=== PATIENT | female | born 1960 | race Caucasian/White ===

== ENCOUNTER → 2016-05-16 | Outpatient (CLI) | payer OTHER ==
--- NOTE | 2016-05-16 14:39 | XR ---
EXAMINATION TYPE: XR chest 2V DATE OF EXAM: 05/16/2016 12:17 PM COMPARISON: Prior chest x-ray third of June 2012 HISTORY: Cough, R05 TECHNIQUE: Frontal and lateral views of the chest are obtained. FINDINGS: There is no focal air space opacity, pleural effusion, or pneumothorax seen. The cardiac silhouette size is within normal limits. Bronchial wall thickening is present. There is a mild spinal curvature. The osseous structures are intact. IMPRESSION: Correlate for reactive airways disease, bronchitis, follow-up as indicated
== END | disposition home or self-care (01) ==
LOC: RADXRMAIN 11:44
PROVIDERS: ATTEND Internal Medicine Sleep Medicine
DX: R91.8 Other nonspecific abnormal finding of lung field (principal)
CPT/HCPCS: 71020

== ENCOUNTER → 2016-08-08 | Outpatient (CLI) | payer OTHER ==
[2016-08-11 14:23] LABS: Alternaria alternata IgE <0.35 kU/L (<0.35); Asperg. fumagatus IgE <0.35 kU/L (<0.35); Asperg. fumagatus IgE Class CLASS 0; Cat Epith & Dander IgE <0.35 kU/L (<0.35); Cat Epith & Dander IgE Class CLASS 0; Clad herbarum IgE <0.35 kU/L (<0.35); Clad herbarum IgE Class CLASS 0; Com. Pigweed IgE <0.35 kU/L (<0.35); Com. Pigweed IgE Class CLASS 0; Common Ragweed IgE Class CLASS 0; Cow's Milk IgE Class CLASS 0; Dermato. farinae IgE <0.35 kU/L (<0.35); Dermato. farinae IgE Class CLASS 0; House Dust (Greer) IgE <0.35 kU/L (<0.35); House Dust (Greer) IgE Class CLASS 0; Maple (Box Elder) IgE <0.35 kU/L (<0.35); Maple (Box Elder) IgE Class CLASS 0; Penicillium notatum IgE Class CLASS 0; Timothy Grass IgE <0.35 kU/L (<0.35); Timothy Grass IgE Class CLASS 0
[2016-08-14 00:04] LABS: Alternaria tenius IgG 6.3 mcg/mL (< 13.6); Phoma ssp. IgG 7.1 mcg/mL (< 6.6); Saccaharomospora viridis Not detected (Not detected); Saccaharopoly. rectivirgula Not detected (Not detected)
== END | disposition home or self-care (01) ==
LOC: LABWHC1 11:58
PROVIDERS: ATTEND Internal Medicine Sleep Medicine
DX: B44.89 Other forms of aspergillosis (principal)
CPT/HCPCS: 36415; 82785; 86001; 86003; 86606; 86609

== ENCOUNTER → 2016-08-15 | Outpatient (CLI) | payer OTHER ==
--- NOTE | 2016-08-18 10:23 | MM ---
Reason for exam: screening (asymptomatic). Last mammogram was performed 1 year and 4 months ago. History: Patient is postmenopausal, has history of other cancer at age 54, and is nulliparous. Physical Findings: A clinical breast exam by your physician is recommended on an annual basis and results should be correlated with mammographic findings. MG Screening Mammo w CAD Bilateral CC and MLO view(s) were taken. Prior study comparison: April 30, 2015, bilateral MG screening mammo w CAD. March 10, 2014, bilateral MG screening mammo w CAD. December 03, 2012, bilateral digital screening mammo w/CAD. There are scattered fibroglandular densities. There is chronic nodularity in the right breast. There is no discrete abnormality. ASSESSMENT: Benign, BI-RAD 2 RECOMMENDATION: Routine screening mammogram of both breasts in 1 year.
== END ==
LOC: RADMAMWWP 07:57
PROVIDERS: ATTEND Obstetrics & Gynecology
DX: Z12.31 Encounter for screening mammogram for malignant neoplasm of breast (principal)

== ENCOUNTER 2017-09-12 18:57 | Emergency (ER) | payer OTHER ==
[2017-09-12] MEDS ORDERED: ACETAMINOPHEN TAB 500 MG TAB PO STA (19:32)
[2017-09-12] MEDS ORDERED: RX INFO: IV CONTRAST WAS GIVEN 1 EACH MISC MISCELLANE PRN (19:33)
[2017-09-12] MEDS ORDERED: IBUPROFEN IV 600 MG in SODIUM CHLORIDE 0.9% 250 ML IV STA (19:36)
[2017-09-12] MEDS ORDERED: SODIUM CHLORIDE 0.9% 1,000 ML IV SCH (19:45)
--- NOTE | 2017-09-12 19:49 | ED ---
General Adult HPI - General Source: patient, RN notes reviewed, old records reviewed Mode of arrival: wheelchair Limitations: no limitations <Gricelda Loomis - Last Filed: 09/12/17 19:59> <Bisi Martin - Last Filed: 09/12/17 23:01> - General Chief complaint: Nausea/Vomiting/Diarrhea Stated complaint: Vomiting/Diarrhea Time Seen by Provider: 09/12/17 19:20 - History of Present Illness Initial comments: 49-year-old female presents emergency Department with a chief complaint of onset of diarrhea and vomiting at 2 PM. She also reports severe chills. She does report some mild right-sided abdominal pain. She denies any prior urinary symptoms. She denies any significant medical history. Patient does report that she has had a take Tums more frequently. She had a EGD in 2012. No history of colitis Crohn's disease. No bloody stools or bloody emesis. Patient states that she her ate the same thing today and he is not ill. No upper respiratory symptoms. (Gricelda Loomis) - Related Data Previous Rx's Medication Instructions Recorded Trimethobenzamide [Tigan] 300 mg PO TID #10 capsule 09/12/17 Allergies Allergy/AdvReac Type Severity Reaction Status Date / Time No Known Allergies Allergy Verified 09/12/17 19:01 Review of Systems ROS Other: All systems not noted in ROS Statement are negative. <Gricelda Loomis - Last Filed: 09/12/17 19:59> ROS Other: All systems not noted in ROS Statement are negative. <Bisi Martin - Last Filed: 09/12/17 23:01> ROS Statement: Those systems with pertinent positive or pertinent negative responses have been documented in the HPI. Past Medical History Past Medical History: Asthma, COPD, Hypertension History of Any Multi-Drug Resistant Organisms: None Reported Past Surgical History: Tubal Ligation Past Psychological History: No Psychological Hx Reported Smoking Status: Never smoker Past Alcohol Use History: None Reported Past Drug Use History: None Reported <Gricelda Loomis - Last Filed: 09/12/17 19:59> General Exam Limitations: no limitations General appearance: alert, in no apparent distress Head exam: Present: atraumatic, normocephalic, normal inspection Eye exam: Present: normal appearance, PERRL, EOMI. Absent: scleral icterus, conjunctival injection, periorbital swelling ENT exam: Present: normal exam, mucous membranes moist Neck exam: Present: normal inspection. Absent: tenderness, meningismus, lymphadenopathy Respiratory exam: Present: normal lung sounds bilaterally. Absent: respiratory distress, wheezes, rales, rhonchi, stridor Cardiovascular Exam: Present: regular rate, normal rhythm, normal heart sounds. Absent: systolic murmur, diastolic murmur, rubs, gallop, clicks GI/Abdominal exam: Present: soft, tenderness (Right lower quadrant tenderness.) , normal bowel sounds. Absent: distended, guarding, rebound, rigid Extremities exam: Present: normal inspection, full ROM, normal capillary refill. Absent: tenderness, pedal edema, joint swelling, calf tenderness Back exam: Present: normal inspection Neurological exam: Present: alert, oriented X3, CN II-XII intact Psychiatric exam: Present: normal affect, normal mood Skin exam: Present: warm, dry, intact, normal color. Absent: rash <Gricelda Loomis - Last Filed: 09/12/17 19:59> <Bisi Martin - Last Filed: 09/12/17 23:01> - General Exam Comments Initial Comments: 57-year-old female. Alert and oriented. No acute distress. (Gricelda Loomis) Vital Signs 09/12/17 09/12/17 09/12/17 18:59 20:01 21:30 Temperature 101.8 F H 102.5 F H Pulse Rate 118 H 110 H 108 H Respiratory 20 20 20 Rate Blood Pressure 134/78 126/81 119/64 O2 Sat by Pulse 100 98 96 Oximetry 09/12/17 22:41 Temperature 100.6 F H Pulse Rate 100 Respiratory 20 Rate Blood Pressure 114/61 O2 Sat by Pulse 96 Oximetry EKG Findings - EKG Comments: EKG Findings:: EKG obtained at 2010 shows sinus tachycardia with a prolonged QT interval. Ventricular rate is 115, FL interval 124, QRS duration 68, QT 376, QTc 520. No evidence of ST elevation or depression. <Bisi Martin - Last Filed: 09/12/17 23:01> Medical Decision Making <Gricelda Loomis - Last Filed: 09/12/17 19:59> - Lab Data Result diagrams: 09/12/17 20:15 09/12/17 20:15 - Radiology Data Radiology results: report reviewed <Bisi Martin - Last Filed: 09/12/17 23:01> - Medical Decision Making This patient's a 57-year-old female. Presents emergency Department with fever 101.8, tachycardic 118 bpm. She complains of nausea and vomiting sudden onset at 2 PM. No history of sick contacts. Patient meet sepsis criteria. Was given 2 L bolus blood cultures and lactic acid obtained. She does have some tenderness in the right lower quadrant. CT abdomen and pelvis with contrast will be completed. Case discussed with Bisi Martin at 8pm. She will finish the case. ( Gricelda Loomis) 57-year-old female patient presented to the emergency department today for evaluation of vomiting and diarrhea. Upon arrival patient did have elevated temperature at 101.8F. Labs reviewed and did show mildly elevated white blood cell count at 11.8. Patient did have dehydration evident with mild elevation of her BUN and creatinine. Patient was given 1500 of IV fluids here in the department. She is feeling much better after receiving Zofran and pain medication. Patient has had no further episodes of vomiting. CT of the abdomen and pelvis was reviewed and did show possible enteritis been no evidence of appendicitis. There was also fatty infiltration of the liver, follow-up was recommended. I did discuss all results with patient and her . Currently patient is not having any abdominal pain. She is tolerating intake of water. She will be given a prescription for Tigan for nausea. Return parameters were discussed in detail. She is instructed to follow-up with her primary care physician for recheck in 1-2 days. She verbalizes understanding and agrees with this plan. (Bisi Martin) - Lab Data Lab Results 09/12/17 09/12/17 09/12/17 Range/Units 20:05 20:05 20:15 WBC 11.9 H (3.8-10.6) k/uL RBC 5.50 H (3.80-5.40) m/uL Hgb 16.5 H (11.4-16.0) gm/dL Hct 49.0 H (34.0-46.0) % MCV 89.2 (80.0-100.0) fL MCH 30.0 (25.0-35.0) pg MCHC 33.6 (31.0-37.0) g/dL RDW 13.7 (11.5-15.5) % Plt Count 252 (150-450) k/uL Neutrophils % 90 % Lymphocytes % 5 % Monocytes % 4 % Eosinophils % 2 % Basophils % 0 % Neutrophils # 10.6 H (1.3-7.7) k/uL Lymphocytes # 0.6 L (1.0-4.8) k/uL Monocytes # 0.4 (0-1.0) k/uL Eosinophils # 0.2 (0-0.7) k/uL Basophils # 0.0 (0-0.2) k/uL PT (9.0-12.0) sec INR (<1.2) APTT (22.0-30.0) sec Sodium (137-145) mmol/L Potassium (3.5-5.1) mmol/L Chloride (98-107) mmol/L Carbon Dioxide (22-30) mmol/L Anion Gap mmol/L BUN (7-17) mg/dL Creatinine (0.52-1.04) mg/dL Est GFR (CKD-EPI)AfAm (>60 ml/min/1.73 sqM) Est GFR (CKD-EPI)NonAf (>60 ml/min/1.73 sqM) Glucose (74-99) mg/dL Plasma Lactic Acid Eddie (0.7-2.0) mmol/L Calcium (8.4-10.2) mg/dL Total Bilirubin (0.2-1.3) mg/dL AST (14-36) U/L ALT (9-52) U/L Alkaline Phosphatase (38-126) U/L Troponin I (0.000-0.034) ng/mL Total Protein (6.3-8.2) g/dL Albumin (3.5-5.0) g/dL Urine Color Yellow Urine Appearance Clear (Clear) Urine pH 5.5 (5.0-8.0) Ur Specific [place] 1.020 (1.001-1.035) Urine Protein Trace H (Negative) Urine Glucose (UA) Negative (Negative) Urine Ketones Negative (Negative) Urine Blood Negative (Negative) Urine Nitrite Negative (Negative) Urine Bilirubin Negative (Negative) Urine Urobilinogen <2.0 (<2.0) mg/dL Ur Leukocyte Esterase Trace H (Negative) Urine RBC <1 (0-5) /hpf Urine WBC 4 (0-5) /hpf Ur Squamous Epith Cells 2 (0-4) /hpf Urine Bacteria Rare H (None) /hpf Hyaline Casts 7 H (0-2) /lpf Urine Mucus Few H (None) /hpf Influenza Type A RNA Not Detected (Not Detectd) Influenza Type B (PCR) Not Detected (Not Detectd) 09/12/17 09/12/17 09/12/17 Range/Units 20:15 20:15 20:15 WBC (3.8-10.6) k/uL RBC (3.80-5.40) m/uL Hgb (11.4-16.0) gm/dL Hct (34.0-46.0) % MCV (80.0-100.0) fL MCH (25.0-35.0) pg MCHC (31.0-37.0) g/dL RDW (11.5-15.5) % Plt Count (150-450) k/uL Neutrophils % % Lymphocytes % % Monocytes % % Eosinophils % % Basophils % % Neutrophils # (1.3-7.7) k/uL Lymphocytes # (1.0-4.8) k/uL Monocytes # (0-1.0) k/uL Eosinophils # (0-0.7) k/uL Basophils # (0-0.2) k/uL PT 10.4 (9.0-12.0) sec INR 1.1 (<1.2) APTT 19.8 L (22.0-30.0) sec Sodium 144 (137-145) mmol/L Potassium 3.7 (3.5-5.1) mmol/L Chloride 108 H (98-107) mmol/L Carbon Dioxide 22 (22-30) mmol/L Anion Gap 14 mmol/L BUN 20 H (7-17) mg/dL Creatinine 1.08 H (0.52-1.04) mg/dL Est GFR (CKD-EPI)AfAm 66 (>60 ml/min/1.73 sqM) Est GFR (CKD-EPI)NonAf 57 (>60 ml/min/1.73 sqM) Glucose 100 H (74-99) mg/dL Plasma Lactic Acid Eddie 1.6 (0.7-2.0) mmol/L Calcium 8.8 (8.4-10.2) mg/dL Total Bilirubin 0.6 (0.2-1.3) mg/dL AST 29 (14-36) U/L ALT 47 (9-52) U/L Alkaline Phosphatase 48 (38-126) U/L Troponin I (0.000-0.034) ng/mL Total Protein 6.5 (6.3-8.2) g/dL Albumin 4.0 (3.5-5.0) g/dL Urine Color Urine Appearance (Clear) Urine pH (5.0-8.0) Ur Specific [place] (1.001-1.035) Urine Protein (Negative) Urine Glucose (UA) (Negative) Urine Ketones (Negative) Urine Blood (Negative) Urine Nitrite (Negative) Urine Bilirubin (Negative) Urine Urobilinogen (<2.0) mg/dL Ur Leukocyte Esterase (Negative) Urine RBC (0-5) /hpf Urine WBC (0-5) /hpf Ur Squamous Epith Cells (0-4) /hpf Urine Bacteria (None) /hpf Hyaline Casts (0-2) /lpf Urine Mucus (None) /hpf Influenza Type A RNA (Not Detectd) Influenza Type B (PCR) (Not Detectd) 09/12/17 Range/Units 20:15 WBC (3.8-10.6) k/uL RBC (3.80-5.40) m/uL Hgb (11.4-16.0) gm/dL Hct (34.0-46.0) % MCV (80.0-100.0) fL MCH (25.0-35.0) pg MCHC (31.0-37.0) g/dL RDW (11.5-15.5) % Plt Count (150-450) k/uL Neutrophils % % Lymphocytes % % Monocytes % % Eosinophils % % Basophils % % Neutrophils # (1.3-7.7) k/uL Lymphocytes # (1.0-4.8) k/uL Monocytes # (0-1.0) k/uL Eosinophils # (0-0.7) k/uL Basophils # (0-0.2) k/uL PT (9.0-12.0) sec INR (<1.2) APTT (22.0-30.0) sec Sodium (137-145) mmol/L Potassium (3.5-5.1) mmol/L Chloride (98-107) mmol/L Carbon Dioxide (22-30) mmol/L Anion Gap mmol/L BUN (7-17) mg/dL Creatinine (0.52-1.04) mg/dL Est GFR (CKD-EPI)AfAm (>60 ml/min/1.73 sqM) Est GFR (CKD-EPI)NonAf (>60 ml/min/1.73 sqM) Glucose (74-99) mg/dL Plasma Lactic Acid Eddie (0.7-2.0) mmol/L Calcium (8.4-10.2) mg/dL Total Bilirubin (0.2-1.3) mg/dL AST (14-36) U/L ALT (9-52) U/L Alkaline Phosphatase (38-126) U/L Troponin I <0.012 (0.000-0.034) ng/mL Total Protein (6.3-8.2) g/dL Albumin (3.5-5.0) g/dL Urine Color Urine Appearance (Clear) Urine pH (5.0-8.0) Ur Specific [place] (1.001-1.035) Urine Protein (Negative) Urine Glucose (UA) (Negative) Urine Ketones (Negative) Urine Blood (Negative) Urine Nitrite (Negative) Urine Bilirubin (Negative) Urine Urobilinogen (<2.0) mg/dL Ur Leukocyte Esterase (Negative) Urine RBC (0-5) /hpf Urine WBC (0-5) /hpf Ur Squamous Epith Cells (0-4) /hpf Urine Bacteria (None) /hpf Hyaline Casts (0-2) /lpf Urine Mucus (None) /hpf Influenza Type A RNA (Not Detectd) Influenza Type B (PCR) (Not Detectd) Disposition <Gricelda Loomis - Last Filed: 09/12/17 19:59> Is patient prescribed a controlled substance at d/c from ED?: No Time of Disposition: 22:54 <Bisi Martin - Last Filed: 09/12/17 23:01> Clinical Impression: Gastroenteritis Disposition: HOME SELF-CARE Condition: Good Instructions: Gastroenteritis (ED), Acute Nausea and Vomiting (ED), Acute Diarrhea (ED) Additional Instructions: Start with a clear liquid diet and advance as tolerated. Use medications as directed. Follow-up with your primary care physician for recheck in 1-2 days. Return here immediately for any new, worsening, or concerning symptoms. Prescriptions: Trimethobenzamide [Tigan] 300 mg PO TID #10 capsule Referrals: Sheron Fletcher MD [Primary Care Provider] - 1-2 days
[2017-09-12] MEDS ORDERED: ONDANSETRON 4 MG/2 ML VIAL IVP STA (20:09)
[2017-09-12] MEDS: SODIUM CHLORIDE 0.9% 500 ML IV SCH ×3 (20:15→21:15)
[2017-09-12 20:26] LABS: Appearance,Urine Clear (Clear); Bacteria,Urine Rare /hpf; Bilirubin,Urine Negative (Negative); Blood,Urine Negative (Negative); Color,Urine Yellow; Glucose,Urine (UA) Negative (Negative); Hyaline Casts,Urine 7 /lpf (0-2); Ketones,Urine Negative (Negative); Leukocyte Esterase,Urine Trace (Negative); Mucus,Urine Few /hpf; Nitrite,Urine Negative (Negative); PH, Urine 5.5 (5.0-8.0); Protein,Urine Trace (Negative); RBC,Urine <1 /hpf (0-5); Squamous Epithelial Cell,Urine 2 /hpf (0-4); Urobilinogen,Urine <2.0 mg/dL (<2.0); WBC,Urine 4 /hpf (0-5)
[2017-09-12 20:27] LABS: Basophils % (A) 0 %; Eosinophils # (A) 0.2 k/uL (0-0.7); Eosinophils % (A) 2 %; HGB 16.5 gm/dL (11.4-16.0); Lymphocytes # (A) 0.6 k/uL (1.0-4.8); Lymphocytes % (A) 5 %; MCHC 33.6 g/dL (31.0-37.0); MCV 89.2 fL (80.0-100.0); Mean Platelet Volume 6.7; Monocytes # (A) 0.4 k/uL (0-1.0); Monocytes % (A) 4 %; Neutrophils # (A) 10.6 k/uL (1.3-7.7); Neutrophils % (A) 90 %; Platelet Count 252 k/uL (150-450); RDW 13.7 % (11.5-15.5); WBC 11.9 k/uL (3.8-10.6)
[2017-09-12 20:38] LABS: Calcium 8.8 mg/dL (8.4-10.2); Potassium 3.7 mmol/L (3.5-5.1); Total Bilirubin 0.6 mg/dL (0.2-1.3); Total Protein 6.5 g/dL (6.3-8.2)
[2017-09-12 20:44] LABS: INR 1.1 (<1.2); Prothrombin Time 10.4 sec (9.0-12.0)
[2017-09-12 21:02] LABS: Partial Thromboplastin Time 19.8 sec (22.0-30.0)
--- NOTE | 2017-09-12 21:57 | CT ---
EXAMINATION TYPE: CT abdomen pelvis w con DATE OF EXAM: 09/12/2017 COMPARISON: CT abdomen pelvis 09/09/2012 HISTORY: Pt. c/o nausea and vomiting; RLQ abdominal pain. hx. of tubal ligation. CT DLP: 873.00 mGycm Automated exposure control for dose reduction was used. TECHNIQUE: Helical acquisition of images from the lung bases through the pelvis have been completed. CONTRAST: Performed without Oral Contrast and with IV Contrast, patient injected with 80 mL of Isovue 300. FINDINGS: LUNG BASES: Minimal dependent atelectatic changes are present. AORTA: No significant abnormality is appreciated. LIVER/GB: The liver shows low attenuation possibly due to hepatic steatosis. There is a focal area of low-attenuation present peripherally seen on axial image 21 within the right lobe measuring approxim ately 2 cm in greatest dimension with some suggestion of higher attenuation peripherally which become s less conspicuous on delayed images. This has decreased in size as compared to previous examination however. The gallbladder shows dependent high attenuation compatible with stones. PANCREAS: No significant abnormality is seen. SPLEEN: No significant abnormality is seen. ADRENALS: No significant abnormality is seen. KIDNEYS: No significant abnormality is seen. REPRODUCTIVE ORGANS: No significant abnormality is seen BOWEL: Fluid-filled loops of small bowel are present throughout the abdomen. No evident bowel disten tion. The appendix is normal. Extensive diverticular change present within the sigmoid colon. FREE AIR: No Free Air visible. ASCITES: None visible. PELVIC ADENOPATHY: None visualized. RETROPERITONEAL ADENOPATHY: No Retroperitoneal Adenopathy visible. URINARY BLADDER: No significant abnormality is seen. OSSEOUS STRUCTURES: No significant abnormality is seen. IMPRESSION: DIVERTICULOSIS. PROBABLE FATTY INFILTRATION OF THE LIVER, LIVER MRI MAY BE OF BENEFIT. CHOLELITHIASIS . CORRELATE FOR ENTERITIS.
[2017-09-12] MEDS ORDERED: ONDANSETRON 4 MG ODT STARTER PACK 2 TAB BTL PO STA (22:54)
[2017-09-12] MEDS ORDERED: TRIMETHOBENZAMIDE 300 MG CAP PO STA (22:59)
[2017-09-13 00:03] VITALS: BP 108/78; PULSE 88; RESP 18; TEMP 99.9
== END 2017-09-12 23:50 | disposition home or self-care (01) ==
LOC: EC 18:57
DX: K52.9 Noninfective gastroenteritis and colitis, unspecified (principal); Z98.51 Tubal ligation status
CPT/HCPCS: 36415; 93005; 80053; 83605; 84484; 85025; 85610; 85730; 81001; 87040; 87086; 87502; 74177; 99285; 96365; 96375; 96361 ×3; J2405; J1741; Q9967

== ENCOUNTER 2017-10-10 08:50 | Observation (INO) | payer OTHER ==
[2017-10-10] MEDS ORDERED: SODIUM CHLORIDE 0.9% 1,000 ML IV STA (09:11)
--- NOTE | 2017-10-10 09:16 | ED ---
General Adult HPI - General Source: patient, RN notes reviewed Mode of arrival: ambulatory Limitations: no limitations <Jasper Fontanez - Last Filed: 10/10/17 11:16> <Abdulaziz Arizmendi - Last Filed: 10/10/17 12:00> - General Chief complaint: Abdominal Pain Stated complaint: Abd Pain Time Seen by Provider: 10/10/17 09:06 - History of Present Illness Initial comments: Patient's a 57-year-old female presented to the emergency room today with a chief complaint of abdominal pain over the last 3 days. She describes it as a sharp cramping type pain located in the lower abdomen greater on the left lower side. Patient does admit that the pain seems to come and go in waves but has somewhat of a constant pain currently rated a 3/10. Has declined any pain medication at this time. She does admit that she's had some nausea no vomiting this recent bout of abdominal pain. Admits that she was seen in the hospital approximately a month ago for similar type abdominal pain. Patient does admit that she's had the chills. She states appetites been well trying to eat a bland diet. States that sometimes when she eats. The pain does increase. She does admit that she's had small bowel movements. Not passing any gas. Patient denies any recent fever, chills, shortness of breath, chest pain, back pain, numbness or tingling, dysuria or hematuria, diarrhea, headaches or visual changes, or any other complaints. (Jasper Fontanez) - Related Data Previous Rx's Medication Instructions Recorded Trimethobenzamide [Tigan] 300 mg PO TID #10 capsule 09/12/17 Allergies Allergy/AdvReac Type Severity Reaction Status Date / Time No Known Allergies Allergy Verified 10/10/17 11:53 Review of Systems ROS Other: All systems not noted in ROS Statement are negative. <Jasper Fontanez - Last Filed: 10/10/17 11:16> ROS Other: All systems not noted in ROS Statement are negative. <Abdulaziz Arizmendi - Last Filed: 10/10/17 12:00> ROS Statement: Those systems with pertinent positive or pertinent negative responses have been documented in the HPI. Past Medical History Past Medical History: Asthma, COPD, Hypertension History of Any Multi-Drug Resistant Organisms: None Reported Past Surgical History: Tubal Ligation Past Psychological History: No Psychological Hx Reported Smoking Status: Never smoker Past Alcohol Use History: None Reported Past Drug Use History: None Reported <Jasper Fontanez - Last Filed: 10/10/17 11:16> General Exam Limitations: no limitations <Jasper Fontanez - Last Filed: 10/10/17 11:16> <Abdulaziz Arizmendi - Last Filed: 10/10/17 12:00> - General Exam Comments Initial Comments: General: The patient is awake and alert, in no distress, and does not appear acutely ill. Eye: Pupils are equal, round and reactive to light, extra-ocular movements are intact. No nystagmus. There is normal conjunctiva bilaterally. No signs of icterus. Ears, nose, mouth and throat: There are moist mucous membranes and no oral lesions. Neck: The neck is supple, there is no tenderness or JVD. Cardiovascular: There is a regular rate and rhythm. No murmur, rub or gallop is appreciated. Respiratory: Lungs are clear to auscultation, respirations are non-labored, breath sounds are equal. No wheezes, stridor, rales, or rhonchi. Gastrointestinal: Abdomen soft on palpation. Patient does have tenderness greatest left lower quadrant. No rebound tenderness. No guarding. No CVA tenderness. Musculoskeletal: Normal ROM, no tenderness. Strength 5/5. Sensation intact. Pulses equal bilaterally 2+. Neurological: A&O x 3. CN II-XII intact, There are no obvious motor or sensory deficits. Coordination appears grossly intact. Speech is normal. Skin: Skin is warm and dry and no rashes or lesions are noted. Psychiatric: Cooperative, appropriate mood & affect, normal judgment. (Jasper Fontanez) Vital Signs 10/10/17 10/10/17 10/10/17 08:50 10:31 10:56 Temperature 100 F H 99.2 F 97.2 F L Pulse Rate 112 H 91 Respiratory 18 18 Rate Blood Pressure 129/77 142/72 O2 Sat by Pulse 97 97 Oximetry Medical Decision Making - Lab Data Result diagrams: 10/10/17 09:13 10/10/17 09:13 <Jasper Fontanez - Last Filed: 10/10/17 11:16> - Lab Data Result diagrams: 10/10/17 09:13 10/10/17 09:13 <TaylorAbdulaziz tate Nesha - Last Filed: 10/10/17 12:00> - Medical Decision Making Patient's labs been reviewed shows a 15,000 white count. Did have fever here in emergency room at triage. Patient feeling better at this time. CT the abdomen and pelvis does show sigmoid diverticulitis with a microperforation into the mesocolon and not the peritoneal cavity. Patient started on Zosyn here the emergency room. Patient will be admitted to the hospital with consult a surgeon. (Jasper Fontanez) - Lab Data Lab Results 10/10/17 10/10/17 10/10/17 Range/Units 09:13 09:13 09:13 WBC 15.4 H (3.8-10.6) k/uL RBC 4.80 (3.80-5.40) m/uL Hgb 14.3 (11.4-16.0) gm/dL Hct 43.2 (34.0-46.0) % MCV 90.0 (80.0-100.0) fL MCH 29.9 (25.0-35.0) pg MCHC 33.2 (31.0-37.0) g/dL RDW 13.6 (11.5-15.5) % Plt Count 224 (150-450) k/uL Neutrophils % 85 % Lymphocytes % 10 % Monocytes % 4 % Eosinophils % 0 % Basophils % 0 % Neutrophils # 13.1 H (1.3-7.7) k/uL Lymphocytes # 1.5 (1.0-4.8) k/uL Monocytes # 0.6 (0-1.0) k/uL Eosinophils # 0.1 (0-0.7) k/uL Basophils # 0.0 (0-0.2) k/uL Sodium 140 (137-145) mmol/L Potassium 3.9 (3.5-5.1) mmol/L Chloride 105 (98-107) mmol/L Carbon Dioxide 21 L (22-30) mmol/L Anion Gap 14 mmol/L BUN 14 (7-17) mg/dL Creatinine 0.80 (0.52-1.04) mg/dL Est GFR (CKD-EPI)AfAm >90 (>60 ml/min/1.73 sqM) Est GFR (CKD-EPI)NonAf 82 (>60 ml/min/1.73 sqM) Glucose 92 (74-99) mg/dL Plasma Lactic Acid Eddie (0.7-2.0) mmol/L Calcium 9.3 (8.4-10.2) mg/dL Total Bilirubin 0.6 (0.2-1.3) mg/dL AST 23 (14-36) U/L ALT 41 (9-52) U/L Alkaline Phosphatase 57 (38-126) U/L Total Protein 6.8 (6.3-8.2) g/dL Albumin 4.1 (3.5-5.0) g/dL Amylase 63 (30-110) U/L Lipase 136 (23-300) U/L Urine Color Yellow Urine Appearance Clear (Clear) Urine pH 5.5 (5.0-8.0) Ur Specific [place] 1.011 (1.001-1.035) Urine Protein Negative (Negative) Urine Glucose (UA) Negative (Negative) Urine Ketones 1+ H (Negative) Urine Blood Negative (Negative) Urine Nitrite Negative (Negative) Urine Bilirubin Negative (Negative) Urine Urobilinogen <2.0 (<2.0) mg/dL Ur Leukocyte Esterase Trace H (Negative) Urine RBC <1 (0-5) /hpf Urine WBC 2 (0-5) /hpf Ur Squamous Epith Cells <1 (0-4) /hpf Urine Mucus Rare H (None) /hpf 10/10/17 Range/Units 09:13 WBC (3.8-10.6) k/uL RBC (3.80-5.40) m/uL Hgb (11.4-16.0) gm/dL Hct (34.0-46.0) % MCV (80.0-100.0) fL MCH (25.0-35.0) pg MCHC (31.0-37.0) g/dL RDW (11.5-15.5) % Plt Count (150-450) k/uL Neutrophils % % Lymphocytes % % Monocytes % % Eosinophils % % Basophils % % Neutrophils # (1.3-7.7) k/uL Lymphocytes # (1.0-4.8) k/uL Monocytes # (0-1.0) k/uL Eosinophils # (0-0.7) k/uL Basophils # (0-0.2) k/uL Sodium (137-145) mmol/L Potassium (3.5-5.1) mmol/L Chloride (98-107) mmol/L Carbon Dioxide (22-30) mmol/L Anion Gap mmol/L BUN (7-17) mg/dL Creatinine (0.52-1.04) mg/dL Est GFR (CKD-EPI)AfAm (>60 ml/min/1.73 sqM) Est GFR (CKD-EPI)NonAf (>60 ml/min/1.73 sqM) Glucose (74-99) mg/dL Plasma Lactic Acid Eddie 1.3 (0.7-2.0) mmol/L Calcium (8.4-10.2) mg/dL Total Bilirubin (0.2-1.3) mg/dL AST (14-36) U/L ALT (9-52) U/L Alkaline Phosphatase (38-126) U/L Total Protein (6.3-8.2) g/dL Albumin (3.5-5.0) g/dL Amylase (30-110) U/L Lipase (23-300) U/L Urine Color Urine Appearance (Clear) Urine pH (5.0-8.0) Ur Specific [place] (1.001-1.035) Urine Protein (Negative) Urine Glucose (UA) (Negative) Urine Ketones (Negative) Urine Blood (Negative) Urine Nitrite (Negative) Urine Bilirubin (Negative) Urine Urobilinogen (<2.0) mg/dL Ur Leukocyte Esterase (Negative) Urine RBC (0-5) /hpf Urine WBC (0-5) /hpf Ur Squamous Epith Cells (0-4) /hpf Urine Mucus (None) /hpf Disposition Is patient prescribed a controlled substance at d/c from ED?: No Time of Disposition: 11:18 <Jasper Fontanez - Last Filed: 10/10/17 11:16> <Abdulaziz Arizmendi - Last Filed: 10/10/17 12:00> Clinical Impression: Diverticulitis of intestine with perforation Disposition: ADMITTED IP TO THIS HOSP Condition: Good Referrals: Sheron Fletcher MD [Primary Care Provider] - 1-2 days
[2017-10-10] MEDS ORDERED: ACETAMINOPHEN IV (For NPO) 1,000 MG in EMPTY BAG 1 BAG IVPB STA (09:17)
[2017-10-10 09:38] LABS: Basophils % (A) 0 %; Eosinophils # (A) 0.1 k/uL (0-0.7); Eosinophils % (A) 0 %; HCT 43.2 % (34.0-46.0); HGB 14.3 gm/dL (11.4-16.0); Lymphocytes # (A) 1.5 k/uL (1.0-4.8); Lymphocytes % (A) 10 %; MCH 29.9 pg (25.0-35.0); MCHC 33.2 g/dL (31.0-37.0); Mean Platelet Volume 6.5; Monocytes # (A) 0.6 k/uL (0-1.0); Monocytes % (A) 4 %; Neutrophils # (A) 13.1 k/uL (1.3-7.7); Neutrophils % (A) 85 %; Platelet Count 224 k/uL (150-450); RDW 13.6 % (11.5-15.5); WBC 15.4 k/uL (3.8-10.6)
[2017-10-10 09:43] LABS: Appearance,Urine Clear (Clear); Bilirubin,Urine Negative (Negative); Blood,Urine Negative (Negative); Color,Urine Yellow; Glucose,Urine (UA) Negative (Negative); Ketones,Urine 1+ (Negative); Leukocyte Esterase,Urine Trace (Negative); Mucus,Urine Rare /hpf; Nitrite,Urine Negative (Negative); PH, Urine 5.5 (5.0-8.0); Protein,Urine Negative (Negative); RBC,Urine <1 /hpf (0-5); Specific Gravity,Urine 1.011 (1.001-1.035); Squamous Epithelial Cell,Urine <1 /hpf (0-4); Urobilinogen,Urine <2.0 mg/dL (<2.0); WBC,Urine 2 /hpf (0-5)
[2017-10-10 09:53] LABS: ALT 41 U/L (9-52); AST 23 U/L (14-36); Albumin 4.1 g/dL (3.5-5.0); Alkaline Phosphatase 57 U/L (38-126); Amylase 63 U/L (30-110); Anion Gap 14 mmol/L; Blood Urea Nitrogen 14 mg/dL (7-17); Calcium 9.3 mg/dL (8.4-10.2); Carbon Dioxide 21 mmol/L (22-30); Chloride 105 mmol/L (98-107); Glucose 92 mg/dL (74-99); Lipase 136 U/L (23-300); Potassium 3.9 mmol/L (3.5-5.1); Sodium 140 mmol/L (137-145); Total Bilirubin 0.6 mg/dL (0.2-1.3); Total Protein 6.8 g/dL (6.3-8.2)
--- NOTE | 2017-10-10 10:57 | CT ---
EXAMINATION TYPE: CT abdomen pelvis w con DATE OF EXAM: 10/10/2017 COMPARISON: NONE HISTORY: Abdominal pain, nausea and vomiting CT DLP: 717.2 mGycm Automated exposure control for dose reduction was used. TECHNIQUE: Helical acquisition of images was performed from the lung bases through the pelvis. CONTRAST: Performed without Oral Contrast and with IV Contrast, patient injected with 100 mL of Isovue 300. FINDINGS: BOWEL: The sigmoid colon is diffusely edematous and shows diffuse mural thickening and diverticulosi s. In addition, there are tiny gas bubbles tracking cephalad from the mid sigmoid colon into the sigm oid mesocolon with some gas bubbles seen within the anterior pararenal space up to the level of the lower poles of the kidneys. There are no drainable fluid collections. There is no pneumoperitoneum, a nd no peritoneal fluid. Eventual follow-up colonoscopy, if not recently obtained, can be used to ensu re normal underlying mucosa. LUNG BASES: No significant abnormality is appreciated. LIVER/GB: No significant abnormality is appreciated. There is a 2 cm low-attenuation focus in the per iphery of the anterior segment of the right hepatic lobe, this was seen on the comparison MRI of September 26, 2011. PANCREAS: No significant abnormality is seen. SPLEEN: No significant abnormality is seen. ADRENALS: No significant abnormality is seen. KIDNEYS: No significant abnormality is seen. PERITONEAL CAVITY: No free air is visualized. No peritoneal fluid. ABDOMINAL ADENOPATHY: None visualized REPRODUCTIVE ORGANS: No significant abnormality is seen URINARY BLADDER: No significant abnormality is seen. PELVIC ADENOPATHY: None visualized. OSSEOUS STRUCTURES: No significant abnormality is seen. VASCULATURE: Unremarkable. IMPRESSION: PROMINENT SIGMOID DIVERTICULITIS PERFORATED INTO THE SIGMOID M[place], BUT NO PERFORATION INTO THE P ERITONEAL CAVITY.
[2017-10-10] MEDS ORDERED: PIPERACILLIN-TAZOBACTAM 3.375 GM in DEXTROSE/WATER 1 50ML.BAG IVPB STA (11:16)
[2017-10-10] MEDS ORDERED: NALOXONE 0.4 MG/ML 1 ML VIAL IV PRN (11:18)
[2017-10-10] MEDS ORDERED: MORPHINE SULFATE 2 MG/ML SYRINGE IV PRN (11:18)
[2017-10-10] MEDS ORDERED: ACETAMINOPHEN TAB 325 MG TAB PO PRN (11:18)
[2017-10-10] MEDS ORDERED: ONDANSETRON 4 MG/2 ML VIAL IVP PRN (11:18)
[2017-10-10] MEDS ORDERED: SODIUM CHLORIDE 0.9% 1,000 ML IV ONE (11:18)
[2017-10-10 12:57] VITALS: BMI 33.1
--- NOTE | 2017-10-10 13:24 | P.GSHP ---
History of Present Illness H&P Date: 10/10/17 This 57-year-old femalePresenting with lower abdominal pain which began on Thursday. She denies her having something like this before. She's never had abdominal surgery. She did have some diarrhea yesterday. She had subjective fevers. She denies any nausea or vomiting. She denies any sick contacts. Past Medical History Past Medical History: Asthma, COPD, Hypertension History of Any Multi-Drug Resistant Organisms: None Reported Past Surgical History: Tubal Ligation Past Anesthesia/Blood Transfusion Reactions: Postoperative Nausea & Vomiting ( PONV) Additional Past Anesthesia/Blood Transfusion Reaction / Comment(s): with tubal ligation Past Psychological History: No Psychological Hx Reported Smoking Status: Never smoker Past Alcohol Use History: None Reported Past Drug Use History: None Reported - Past Family History Father Family Medical History: Asthma, Cancer, Hypertension, Myocardial Infarction ([place]) Additional Family Medical History / Comment(s): skin Ca Mother Family Medical History: Cancer Additional Family Medical History / Comment(s): ovarian, bladder cancer Medications and Allergies Home Medications Medication Instructions Recorded Confirmed Type Albuterol Nebulized (Conc) 2.5 mg INHALATION RT-BID 10/10/17 10/10/17 History [Ventolin Nebulized (Conc)] Beclomethasone Dipropionate [Qvar 1 puff INHALATION RT-BID 10/10/17 10/10/17 History 80 mcg] Calcium Carbonate/Vitamin D3 1 tab PO DAILY 10/10/17 10/10/17 History [Caltrate 600 Plus D3 Tablet] Cyanocobalamin (Vitamin B-12) 1,000 mcg PO DIRECTED 10/10/17 10/10/17 History [Vitamin B-12] Ergocalciferol (Vitamin D2) 50,000 unit PO Q7D 10/10/17 10/10/17 History [Vitamin D2] Levothyroxine Sodium [Synthroid] 50 mcg PO MOTUWETHFRSA 10/10/17 10/10/17 History Levothyroxine Sodium [Synthroid] 100 mcg PO DAN 10/10/17 10/10/17 History Losartan [Cozaar] 50 mg PO DAILY 10/10/17 10/10/17 History Montelukast [Singulair] 10 mg PO DAILY 10/10/17 10/10/17 History Ubidecarenone [Co Q-10] 100 mg PO DAILY 10/10/17 10/10/17 History amLODIPine [Norvasc] 10 mg PO DAILY 10/10/17 10/10/17 History predniSONE 10 mg PO MOWEFR 10/10/17 10/10/17 History Allergies Allergy/AdvReac Type Severity Reaction Status Date / Time No Known Allergies Allergy Verified 10/10/17 11:53 Surgical - Exam Osteopathic Statement: *. No significant issues noted on an osteopathic structural exam other than those noted in the History and Physical/Consult. Vital Signs Temp Pulse Resp BP Pulse Ox 100 F H 112 H 18 129/77 97 10/10/17 08:50 10/10/17 08:50 10/10/17 08:50 10/10/17 08:50 10/10/17 08:50 - General well developed, well nourished, no distress - Respiratory normal expansion, normal respiratory effort - Cardiovascular Rhythm: regular - Abdomen Soft nondistended tender to palpation in the left lower quadrant suprapubic area no rebound rigidity or guarding - Neurologic normal coordination, normal sensation - Psychiatric oriented to time, oriented to person, oriented to place Results - Labs 10/10/17 09:13 10/10/17 09:13 Abnormal Lab Results - Last 24 Hours (Table) 10/10/17 10/10/17 10/10/17 Range/Units 09:13 09:13 09:13 WBC 15.4 H (3.8-10.6) k/uL Neutrophils # 13.1 H (1.3-7.7) k/uL Carbon Dioxide 21 L (22-30) mmol/L Urine Ketones 1+ H (Negative) Ur Leukocyte Esterase Trace H (Negative) Urine Mucus Rare H (None) /hpf Diabetes panel 10/10/17 Range/Units 09:13 Sodium 140 (137-145) mmol/L Potassium 3.9 (3.5-5.1) mmol/L Chloride 105 (98-107) mmol/L Carbon Dioxide 21 L (22-30) mmol/L BUN 14 (7-17) mg/dL Creatinine 0.80 (0.52-1.04) mg/dL Glucose 92 (74-99) mg/dL Calcium 9.3 (8.4-10.2) mg/dL AST 23 (14-36) U/L ALT 41 (9-52) U/L Alkaline Phosphatase 57 (38-126) U/L Total Protein 6.8 (6.3-8.2) g/dL Albumin 4.1 (3.5-5.0) g/dL Calcium panel 10/10/17 Range/Units 09:13 Calcium 9.3 (8.4-10.2) mg/dL Albumin 4.1 (3.5-5.0) g/dL Pituitary panel 10/10/17 Range/Units 09:13 Sodium 140 (137-145) mmol/L Potassium 3.9 (3.5-5.1) mmol/L Chloride 105 (98-107) mmol/L Carbon Dioxide 21 L (22-30) mmol/L BUN 14 (7-17) mg/dL Creatinine 0.80 (0.52-1.04) mg/dL Glucose 92 (74-99) mg/dL Calcium 9.3 (8.4-10.2) mg/dL Adrenal panel 10/10/17 Range/Units 09:13 Sodium 140 (137-145) mmol/L Potassium 3.9 (3.5-5.1) mmol/L Chloride 105 (98-107) mmol/L Carbon Dioxide 21 L (22-30) mmol/L BUN 14 (7-17) mg/dL Creatinine 0.80 (0.52-1.04) mg/dL Glucose 92 (74-99) mg/dL Calcium 9.3 (8.4-10.2) mg/dL Total Bilirubin 0.6 (0.2-1.3) mg/dL AST 23 (14-36) U/L ALT 41 (9-52) U/L Alkaline Phosphatase 57 (38-126) U/L Total Protein 6.8 (6.3-8.2) g/dL Albumin 4.1 (3.5-5.0) g/dL - Imaging CT scan - abdomen: report reviewed, image reviewed CT scan - pelvis: report reviewed, image reviewed Assessment and Plan Assessment: Diverticulitis with microperforation no sign of abscess Plan: Continue IV antibiotics and npo, IV fluids, no plans for acute surgical intervention at this time continue to monitor closely
[2017-10-10] MEDS ORDERED: ACETAMINOPHEN IV (For NPO) 1,000 MG in EMPTY BAG 1 BAG IVPB PRN (15:18)
[2017-10-10] MEDS: LEVOTHYROXINE 50 MCG TAB PO SCH (15:23)
--- NOTE | 2017-10-10 15:55 | P.HPIM ---
History of Present Illness 57-year-old female came in with bilateral lower quadrant abdominal pain and suprapubic abdominal pain without any dysuria denied any fevers was having chills at home. Patient is found to have leukocytosis CAT scan showed diverticulitis with a small perforation probably microperforation. Surgery admitted the patient. Patient was started on Zosyn. Patient to came in to the hospital about 3 weeks ago with the nausea vomiting and diarrhea at the time patient was diagnosed with gastroenteritis and the CAT scan did show gastroenteritis at this time patient was subsequently discharged and the patient did not take any antibiotics. Patient since then did not feel much better and today morning patient started having severe and chest and abdominal pain and decided to come to the hospital at that time. Lesions abdomen is soft does not have any clinical signs or symptoms of peritonitis because of his surgery is not warranted at this time. Review of Systems REVIEW OF SYSTEMS: CONSTITUTIONAL: No fever, no malaise, no fatigue. HEENT: No recent visual problems or hearing problems. Denied any sore throat. CARDIOVASCULAR: No chest pain, orthopnea, PND, no palpitations, no syncope. PULMONARY: No shortness of breath, no cough, no hemoptysis. GASTROINTESTINAL: No diarrhea, no vomiting, NEUROLOGICAL: No headaches, no weakness, no numbness. HEMATOLOGICAL: Denies any bleeding or petechiae. GENITOURINARY: Denies any burning micturition, frequency, or urgency. MUSCULOSKELETAL/RHEUMATOLOGICAL: Denies any joint pain, swelling, or any muscle pain. ENDOCRINE: Denies any polyuria or polydipsia. The rest of the 14-point review of systems is negative. Past Medical History Past Medical History: Asthma, COPD, Hypertension History of Any Multi-Drug Resistant Organisms: None Reported Past Surgical History: Tubal Ligation Past Anesthesia/Blood Transfusion Reactions: Postoperative Nausea & Vomiting ( PONV) Additional Past Anesthesia/Blood Transfusion Reaction / Comment(s): with tubal ligation Past Psychological History: No Psychological Hx Reported Smoking Status: Never smoker Past Alcohol Use History: None Reported Past Drug Use History: None Reported - Past Family History Father Family Medical History: Asthma, Cancer, Hypertension, Myocardial Infarction ([place]) Additional Family Medical History / Comment(s): skin Ca Mother Family Medical History: Cancer Additional Family Medical History / Comment(s): ovarian, bladder cancer Medications and Allergies Home Medications Medication Instructions Recorded Confirmed Type Albuterol Nebulized (Conc) 2.5 mg INHALATION RT-BID 10/10/17 10/10/17 History [Ventolin Nebulized (Conc)] Beclomethasone Dipropionate [Qvar 1 puff INHALATION RT-BID 10/10/17 10/10/17 History 80 mcg] Calcium Carbonate/Vitamin D3 1 tab PO DAILY 10/10/17 10/10/17 History [Caltrate 600 Plus D3 Tablet] Cyanocobalamin (Vitamin B-12) 1,000 mcg PO DIRECTED 10/10/17 10/10/17 History [Vitamin B-12] Ergocalciferol (Vitamin D2) 50,000 unit PO Q7D 10/10/17 10/10/17 History [Vitamin D2] Levothyroxine Sodium [Synthroid] 50 mcg PO MOTUWETHFRSA 10/10/17 10/10/17 History Levothyroxine Sodium [Synthroid] 100 mcg PO DAN 10/10/17 10/10/17 History Losartan [Cozaar] 50 mg PO DAILY 10/10/17 10/10/17 History Montelukast [Singulair] 10 mg PO DAILY 10/10/17 10/10/17 History Ubidecarenone [Co Q-10] 100 mg PO DAILY 10/10/17 10/10/17 History amLODIPine [Norvasc] 10 mg PO DAILY 10/10/17 10/10/17 History predniSONE 10 mg PO MOWEFR 10/10/17 10/10/17 History Allergies Allergy/AdvReac Type Severity Reaction Status Date / Time No Known Allergies Allergy Verified 10/10/17 11:53 Physical Exam Vitals: Vital Signs Temp Pulse Pulse Resp BP BP Pulse Ox 10/10/17 14:35 98.0 F 78 18 121/75 97 10/10/17 12:14 98.7 F 82 18 123/68 10/10/17 12:00 98.1 F 85 20 130/65 99 10/10/17 10:56 97.2 F L 10/10/17 10:31 99.2 F 91 18 142/72 97 10/10/17 08:50 100 F H 112 H 18 129/77 97 Intake and Output 10/10/17 10/10/17 10/10/17 06:59 14:59 22:59 Intake Total 200 Balance 200 Intake: Intake, IV Titration 200 Amount Sodium Chloride 0.9% 1, 200 000 ml @ 100 mls/hr IV . Q10H ONE Rx#:[id number] Other: Voiding Method Toilet Weight 74.5 kg PHYSICAL EXAMINATION: GENERAL: The patient is alert and oriented x3, not in any acute distress. Well developed, well nourished. HEENT: Pupils are round and equally reacting to light. EOMI. No scleral icterus. No conjunctival pallor. Normocephalic, atraumatic. No pharyngeal erythema. No thyromegaly. CARDIOVASCULAR: S1 and S2 present. No murmurs, rubs, or gallops. PULMONARY: Chest is clear to auscultation, no wheezing or crackles. ABDOMEN: Soft, nontender, nondistended, normoactive bowel sounds. No palpable organomegaly. MUSCULOSKELETAL: No joint swelling or deformity. EXTREMITIES: No cyanosis, clubbing, or pedal edema. NEUROLOGICAL: Gross neurological examination did not reveal any focal deficits. SKIN: No rashes. Results CBC & Chem 7: 10/10/17 09:13 10/10/17 09:13 Labs: Abnormal Lab Results - Last 24 Hours (Table) 10/10/17 10/10/17 10/10/17 Range/Units 09:13 09:13 09:13 WBC 15.4 H (3.8-10.6) k/uL Neutrophils # 13.1 H (1.3-7.7) k/uL Carbon Dioxide 21 L (22-30) mmol/L Urine Ketones 1+ H (Negative) Ur Leukocyte Esterase Trace H (Negative) Urine Mucus Rare H (None) /hpf Thrombosis Risk Factor Assmnt - Choose All That Apply Each Factor Represents 1 point: Abnormal pulmonary function (COPD), Age 41-60 years Thrombosis Risk Factor Assessment Total Risk Factor Score: 2 Thrombosis Risk Factor Assessment Level: Low Risk Assessment and Plan Plan: -Diverticulitis with small contained microperforation: Patient is nothing by mouth because of his nausea, patient is on Zosyn which will be continued. Surgery evaluated the patient. Patient is requesting something else for pain rather morphine patient was started on Toradol for GI prophylaxis and Tylenol for pain -Asthma without any acute exacerbation: Continue with the inhaled steroids and albuterol hold off on prednisone. -Hypertension -Hypothyroidism For above-mentioned chronic medical problems patient will be resumed on appropriate home medications and will continued
[2017-10-10] MEDS: KETOROLAC 30 MG/ML 1 ML VIAL IVP PRN (16:01)
[2017-10-10] MEDS: ALBUTEROL NEBULIZED 2.5 MG/3 ML INHALATION SCH (18:57)
[2017-10-10] MEDS: BUDESONIDE 1 MG/2 ML NEBU INHALATION SCH (18:57)
[2017-10-10] MEDS: PIPERACILLIN-TAZOBACTAM 3.375 GM in DEXTROSE/WATER 1 50ML.BAG IVPB SCH (19:44)
[2017-10-10] MEDS: FAMOTIDINE 20 MG TAB PO SCH (21:00)
[2017-10-11] MEDS: PIPERACILLIN-TAZOBACTAM 3.375 GM in DEXTROSE/WATER 1 50ML.BAG IVPB SCH ×3 (04:55→19:46)
[2017-10-11] MEDS: LEVOTHYROXINE 50 MCG TAB PO SCH (04:59)
[2017-10-11] MEDS ORDERED: LEVOTHYROXINE 100 MCG TAB PO SCH (06:30)
[2017-10-11 07:13] LABS: Basophils % (A) 0 %; Eosinophils # (A) 0.1 k/uL (0-0.7); Eosinophils % (A) 1 %; HCT 39.1 % (34.0-46.0); HGB 12.9 gm/dL (11.4-16.0); Lymphocytes # (A) 1.1 k/uL (1.0-4.8); Lymphocytes % (A) 13 %; MCH 29.9 pg (25.0-35.0); MCV 90.6 fL (80.0-100.0); Mean Platelet Volume 6.4; Monocytes # (A) 0.5 k/uL (0-1.0); Monocytes % (A) 5 %; Neutrophils # (A) 6.9 k/uL (1.3-7.7); Neutrophils % (A) 79 %; Platelet Count 197 k/uL (150-450); RBC 4.32 m/uL (3.80-5.40); RDW 13.9 % (11.5-15.5); WBC 8.7 k/uL (3.8-10.6)
[2017-10-11 07:28] LABS: ALT 35 U/L (9-52); AST 17 U/L (14-36); Albumin 3.2 g/dL (3.5-5.0); Alkaline Phosphatase 57 U/L (38-126); Anion Gap 12 mmol/L; Blood Urea Nitrogen 8 mg/dL (7-17); Calcium 8.5 mg/dL (8.4-10.2); Carbon Dioxide 17 mmol/L (22-30); Chloride 109 mmol/L (98-107); Glucose 63 mg/dL (74-99); Potassium 3.9 mmol/L (3.5-5.1); Sodium 138 mmol/L (137-145); Total Bilirubin 0.6 mg/dL (0.2-1.3); Total Protein 5.5 g/dL (6.3-8.2)
[2017-10-11] MEDS: FAMOTIDINE 20 MG TAB PO SCH ×2 (07:57→19:46)
[2017-10-11] MEDS: amLODIPine 10 MG TAB PO SCH (07:57)
[2017-10-11] MEDS: LOSARTAN 50 MG TAB PO SCH (07:57)
[2017-10-11] MEDS: ALBUTEROL NEBULIZED 2.5 MG/3 ML INHALATION SCH ×2 (09:05→19:30)
[2017-10-11] MEDS: BUDESONIDE 1 MG/2 ML NEBU INHALATION SCH ×2 (09:05→19:30)
--- NOTE | 2017-10-11 12:49 | P.PN ---
Subjective 57-year-old admitted secondary to diverticular disease with small possible microperforation. Patient is clinically doing better and wanted to go home. I believe patient can be discharged if she can tolerate soft diet by the end of the day. Prescription for Augmentin will be provided. Patient has non-anion gap metabolic acidosis secondary to hyperchloremia, IV fluids will be discontinued patient again was started on oral diet if agreeable with surgery. Constitutional: Denied any fatigue denied any fever. Cardio vascular: denied any chest pain, palpitations Gastrointestinal denied any nausea vomiting Pulmonary: Denied any shortness of breath cough Neurologic denied any new focal deficits Objective - Vital Signs Vital signs: Vital Signs Temp 98.9 F 10/11/17 05:03 Pulse 90 10/11/17 09:17 Resp 16 10/11/17 05:03 BP 182/86 10/11/17 05:03 Pulse Ox 96 10/11/17 05:03 Intake & Output 10/10/17 10/11/17 10/11/17 18:59 06:59 18:59 Intake Total 200 850 Balance 200 850 Weight 74.5 kg Intake: Intake, IV Titration 200 850 Amount Piperacillin-Tazobactam 3 50 .375 gm In Dextrose/Water 1 50ml.bag @ 12.5 mls/hr IVPB Q8H [facility] Rx#: [id number] Sodium Chloride 0.9% 1, 200 800 000 ml @ 100 mls/hr IV . Q10H ONE Rx#:[id number] Other: Voiding Method Toilet Toilet # Voids 2 - Exam PHYSICAL EXAMINATION: GENERAL: The patient is alert and oriented x3, not in any acute distress. Well developed, well nourished. HEENT: Pupils are round and equally reacting to light. EOMI. No scleral icterus. No conjunctival pallor. Normocephalic, atraumatic. No pharyngeal erythema. No thyromegaly. CARDIOVASCULAR: S1 and S2 present. No murmurs, rubs, or gallops. PULMONARY: Chest is clear to auscultation, no wheezing or crackles. ABDOMEN: Soft, nontender, nondistended, normoactive bowel sounds. No palpable organomegaly. MUSCULOSKELETAL: No joint swelling or deformity. EXTREMITIES: No cyanosis, clubbing, or pedal edema. NEUROLOGICAL: Gross neurological examination did not reveal any focal deficits. SKIN: No rashes. - Labs CBC & Chem 7: 10/11/17 06:20 10/11/17 06:20 Labs: Abnormal Lab Results - Last 24 Hours (Table) 10/11/17 Range/Units 06:20 Chloride 109 H (98-107) mmol/L Carbon Dioxide 17 L (22-30) mmol/L Glucose 63 L (74-99) mg/dL Total Protein 5.5 L (6.3-8.2) g/dL Albumin 3.2 L (3.5-5.0) g/dL Microbiology - Last 24 Hours (Table) 10/10/17 09:13 Blood Culture - Preliminary Blood No Growth after 24 hours Assessment and Plan Plan: -Diverticulitis with small contained microperforation: Pain is much better can be started on diet advance as tolerated, prescription for Augmentin will be provided can be discharged if she is able to tolerate soft diet and if surgery is agreeable and discharge. -Asthma without any acute exacerbation: Patient can be resumed on her home inhaled steroids and oral prednisone -Hypertension -Hypothyroidism For above-mentioned chronic medical problems patient will be resumed on appropriate home medications and will continued
--- NOTE | 2017-10-11 15:46 | P.PN ---
Subjective Progress Note Date: 10/11/17 Principal diagnosis: Diverticulitis Patient states she's feeling better today and she was started on a clear liquid diet however she states that she did have a little bit of abdominal pain. She had a liquid bowel movement. Vital signs stable afebrile Objective - Vital Signs Vital signs: Vital Signs Temp 96.8 F L 10/11/17 14:28 Pulse 89 10/11/17 14:28 Resp 18 10/11/17 14:28 BP 119/74 10/11/17 14:28 Pulse Ox 96 10/11/17 14:28 Intake & Output 10/10/17 10/11/17 10/11/17 18:59 06:59 18:59 Intake Total 200 850 Balance 200 850 Weight 74.5 kg Intake: Intake, IV Titration 200 850 Amount Piperacillin-Tazobactam 3 50 .375 gm In Dextrose/Water 1 50ml.bag @ 12.5 mls/hr IVPB Q8H [facility] Rx#: [id number] Sodium Chloride 0.9% 1, 200 800 000 ml @ 100 mls/hr IV . Q10H ONE Rx#:[id number] Other: Voiding Method Toilet Toilet Toilet # Voids 2 - Constitutional General appearance: Present: cooperative - Respiratory Details: Nonlabored - Cardiovascular Rhythm: regular - Gastrointestinal Gastrointestinal Comment(s): Soft nondistended mild tenderness palpation suprapubic and left lower quadrant - Psychiatric Psychiatric: Present: A&O x's 3 - Labs CBC & Chem 7: 10/11/17 06:20 10/11/17 06:20 Labs: Abnormal Lab Results - Last 24 Hours (Table) 10/11/17 Range/Units 06:20 Chloride 109 H (98-107) mmol/L Carbon Dioxide 17 L (22-30) mmol/L Glucose 63 L (74-99) mg/dL Total Protein 5.5 L (6.3-8.2) g/dL Albumin 3.2 L (3.5-5.0) g/dL Microbiology - Last 24 Hours (Table) 10/10/17 09:13 Blood Culture - Preliminary Blood No Growth after 24 hours Assessment and Plan Assessment: Diverticulitis with microperforation no sign of abscess Plan: Continue clear liquid diet and IV antibiotics. If patient continues to progress she may be started on a soft diet tomorrow with possible discharge on oral antibiotics if she tolerates this
[2017-10-11 21:55] VITALS: RESP 16
[2017-10-12] MEDS: KETOROLAC 30 MG/ML 1 ML VIAL IVP PRN (03:30)
[2017-10-12] MEDS: PIPERACILLIN-TAZOBACTAM 3.375 GM in DEXTROSE/WATER 1 50ML.BAG IVPB SCH ×2 (03:31→13:13)
[2017-10-12 05:55] VITALS: BP 114/63; TEMP 98.3
[2017-10-12] MEDS: ALBUTEROL NEBULIZED 2.5 MG/3 ML INHALATION SCH (07:02)
[2017-10-12] MEDS: BUDESONIDE 1 MG/2 ML NEBU INHALATION SCH (07:02)
[2017-10-12 07:16] VITALS: PULSE 76
[2017-10-12] MEDS: FAMOTIDINE 20 MG TAB PO SCH (07:28)
[2017-10-12] MEDS: LEVOTHYROXINE 50 MCG TAB PO SCH (07:28)
[2017-10-12] MEDS: amLODIPine 10 MG TAB PO SCH (07:28)
[2017-10-12] MEDS: LOSARTAN 50 MG TAB PO SCH (07:28)
--- NOTE | 2017-10-12 10:21 | P.PN ---
Subjective 57-year-old admitted secondary to diverticular disease with small possible microperforation. Patient is clinically doing better and wanted to go home. I believe patient can be discharged if she can tolerate soft diet by the end of the day. Prescription for Augmentin will be provided. Patient has non-anion gap metabolic acidosis secondary to hyperchloremia, IV fluids will be discontinued patient again was started on oral diet if agreeable with surgery. 10/12/2017 Patient doesn't have any more pain, patient's diet will be advanced today possibly of discharge today if agreeable with surgery Constitutional: Denied any fatigue denied any fever. Cardio vascular: denied any chest pain, palpitations Gastrointestinal denied any nausea vomiting Pulmonary: Denied any shortness of breath cough Neurologic denied any new focal deficits Objective - Vital Signs Vital signs: Vital Signs Temp 98.3 F 10/12/17 05:00 Pulse 76 10/12/17 07:15 Resp 16 10/12/17 05:00 BP 114/63 10/12/17 05:00 Pulse Ox 95 10/12/17 05:00 Intake & Output 10/11/17 10/12/17 10/12/17 18:59 06:59 18:59 Intake Total 100 480 Balance 100 480 Intake: Intake, IV Titration 100 Amount Piperacillin-Tazobactam 3 100 .375 gm In Dextrose/Water 1 50ml.bag @ 12.5 mls/hr IVPB Q8H [facility] Rx#: [id number] Oral 480 Other: Voiding Method Toilet Toilet # Voids 1 # Bowel Movements 1 - Exam PHYSICAL EXAMINATION: GENERAL: The patient is alert and oriented x3, not in any acute distress. Well developed, well nourished. HEENT: Pupils are round and equally reacting to light. EOMI. No scleral icterus. No conjunctival pallor. Normocephalic, atraumatic. No pharyngeal erythema. No thyromegaly. CARDIOVASCULAR: S1 and S2 present. No murmurs, rubs, or gallops. PULMONARY: Chest is clear to auscultation, no wheezing or crackles. ABDOMEN: Soft, nontender, nondistended, normoactive bowel sounds. No palpable organomegaly. MUSCULOSKELETAL: No joint swelling or deformity. EXTREMITIES: No cyanosis, clubbing, or pedal edema. NEUROLOGICAL: Gross neurological examination did not reveal any focal deficits. SKIN: No rashes. - Labs CBC & Chem 7: 10/11/17 06:20 10/11/17 06:20 Labs: Microbiology - Last 24 Hours (Table) 10/10/17 09:13 Blood Culture - Preliminary Blood No Growth after 24 hours Assessment and Plan Plan: -Diverticulitis with small contained microperforation: No pain today patient is on clear liquid diet which will be advanced and the patient is able to tolerate will be discharged, prescription for Augmentin will be provided can be discharged if she is able to tolerate soft diet and if surgery is agreeable and discharge. -Asthma without any acute exacerbation: Patient can be resumed on her home inhaled steroids and oral prednisone -Hypertension -Hypothyroidism For above-mentioned chronic medical problems patient will be resumed on appropriate home medications and will continued
--- NOTE | 2017-10-20 12:08 | P.DS ---
Providers Date of admission: 10/10/17 11:59 Attending physician: Myles Palacios DO Consults: 10/10/17 11:18 Consult Physician Stat Consulting Provider: Damien Mcintosh Consult Reason/Comments: Diverticulitis with microperforation Do you want consulting provider notified?: Yes Primary care physician: Sheron [facility] Course: This is a 57-year-old female who was presented with signs and symptoms consistent with acute diverticulitis. She was admitted to the hospital for IV antibiotics and bowel rest. She began tolerating a clear liquid diet and her white count resolved and her pain resolved she was Tolerating a soft diet and having bowel movements upon discharge. She is discharged home in stable condition with outpatient antibiotics instructions to follow-up in the surgery clinic and with her internal medicine doctor. Patient Condition at Discharge: Good Plan - Discharge Summary Discharge Rx Participant: No New Discharge Prescriptions: New Amoxic-Pot Clav 875-125Mg [Augmentin 875-125] 1 tab PO Q12HR #20 tablet No Action amLODIPine [Norvasc] 10 mg PO DAILY predniSONE 10 mg PO MOWEFR Montelukast [Singulair] 10 mg PO DAILY Losartan [Cozaar] 50 mg PO DAILY Levothyroxine Sodium [Synthroid] 50 mcg PO MOTUWETHFRSA Levothyroxine Sodium [Synthroid] 100 mcg PO DAN Ubidecarenone [Co Q-10] 100 mg PO DAILY Ergocalciferol (Vitamin D2) [Vitamin D2] 50,000 unit PO Q7D Cyanocobalamin (Vitamin B-12) [Vitamin B-12] 1,000 mcg PO DIRECTED Calcium Carbonate/Vitamin D3 [Caltrate 600 Plus D3 Tablet] 1 tab PO DAILY Beclomethasone Dipropionate [Qvar 80 mcg] 1 puff INHALATION RT-BID Albuterol Nebulized (Conc) [Ventolin Nebulized (Conc)] 2.5 mg INHALATION RT- BID Discharge Medication List Albuterol Nebulized (Conc) [Ventolin Nebulized (Conc)] 2.5 mg INHALATION RT-BID 10/10/17 [History] Beclomethasone Dipropionate [Qvar 80 mcg] 1 puff INHALATION RT-BID 10/10/17 [ History] Calcium Carbonate/Vitamin D3 [Caltrate 600 Plus D3 Tablet] 1 tab PO DAILY [History] Cyanocobalamin (Vitamin B-12) [Vitamin B-12] 1,000 mcg PO DIRECTED 10/10/17 [ History] Ergocalciferol (Vitamin D2) [Vitamin D2] 50,000 unit PO Q7D 10/10/17 [History] Levothyroxine Sodium [Synthroid] 50 mcg PO MOTUWETHFRSA 10/10/17 [History] Levothyroxine Sodium [Synthroid] 100 mcg PO DAN 10/10/17 [History] Losartan [Cozaar] 50 mg PO DAILY 10/10/17 [History] Montelukast [Singulair] 10 mg PO DAILY 10/10/17 [History] Ubidecarenone [Co Q-10] 100 mg PO DAILY 10/10/17 [History] amLODIPine [Norvasc] 10 mg PO DAILY 10/10/17 [History] predniSONE 10 mg PO MOWEFR 10/10/17 [History] Amoxic-Pot Clav 875-125Mg [Augmentin 875-125] 1 tab PO Q12HR #20 tablet [Rx] Follow up Appointment(s)/Referral(s): Sheron Fletcher MD [Primary Care Provider] - 10/22/17 1:45 pm Patient Instructions/Handouts: Amoxicillin/Clavulanate Potassium (By mouth), Diverticulitis (DC) Discharge Disposition: HOME SELF-CARE
== END 2017-10-12 14:40 | disposition home or self-care (01) ==
LOC: EC 08:50 → INTOOBSV 11:59 → 5MS5E 11:59 → UNDODISIN 10-12 14:40
PROVIDERS: ADMIT Student in an Organized Health Care Education/Training Program; ATTEND Student in an Organized Health Care Education/Training Program
DX: K57.20 Diverticulitis of large intestine with perforation and abscess without bleeding (principal); E87.2 Acidosis; E03.9 Hypothyroidism, unspecified; E87.8 Other disorders of electrolyte and fluid balance, not elsewhere classified; I10 Essential (primary) hypertension; J44.9 Chronic obstructive pulmonary disease, unspecified; R11.0 Nausea; Z79.899 Other long term (current) drug therapy; Z79.890 Hormone replacement therapy; Z79.51 Long term (current) use of inhaled steroids; Z79.52 Long term (current) use of systemic steroids; Z98.51 Tubal ligation status; Z82.5 Family history of asthma and other chronic lower respiratory diseases; Z82.49 Family history of ischemic heart disease and other diseases of the circulatory system; Z80.52 Family history of malignant neoplasm of bladder; Z80.41 Family history of malignant neoplasm of ovary; Z80.8 Family history of malignant neoplasm of other organs or systems
CPT/HCPCS: 96375 ×2; 96366 ×5; 96376 ×2; 96361 ×3; 96365; 99285; 36415; 94640 ×4; 80053 ×2; 82150; 83605; 83690; 85025 ×2; 81001; 87040; 74177; G0378 ×3; J1885 ×2; J2543 ×3; J0131 ×2; Q9967

== ENCOUNTER → 2018-01-11 | Outpatient (CLI) | payer OTHER ==
--- NOTE | 2018-01-12 09:31 | US ---
EXAMINATION TYPE: US thyroid st tissue head/neck DATE OF EXAM: 01/12/2018 COMPARISON: NONE CLINICAL HISTORY: R59.0 ENLARGED LYMPH NODES. Tenderness and swelling left neck Bilateral neck scanned, no evidence of lymphadenopathy. Benign-appearing lymph nodes are present within the left neck. IMPRESSION: Normal-appearing benign nodes, no adenopathy evident at the site of patient's symptomatology. Follow- up as indicated. CT of the neck with contrast may be of benefit.
== END | disposition home or self-care (01) ==
LOC: RADUSWWP 15:27
PROVIDERS: ATTEND Family Medicine
DX: R59.0 Localized enlarged lymph nodes (principal)
CPT/HCPCS: 76536

== ENCOUNTER → 2018-01-20 | Outpatient (CLI) | payer OTHER ==
--- NOTE | 2018-01-20 14:36 | CT ---
EXAMINATION TYPE: CT soft tissue neck w con DATE OF EXAM: 01/20/2018 COMPARISON: Ultrasound thyroid 01/11/2018 HISTORY: 57-year-old female with localized swelling lt neck area for 2 months. Site marked with a BB. TECHNIQUE: Contiguous axial scanning of the soft tissues of the neck performed with IV Contrast, afusto ent injected with 100 mL of Isovue 300. Coronal/sagittal reconstructions performed. CT DLP: 327.9 mGycm Automated exposure control for dose reduction was used. FINDINGS: Visualized intracranial structures, orbits and globes, and mastoid air cells appear clear. Air-fluid level left sphenoid sinus. The nasopharynx is clear. There is either rightward deviation of the uvula or abnormal soft tissue thickening along the right s navi of the soft palate causing asymmetry of the posterior oropharynx, refer to axial image 58. Calcif ications within the bilateral palatine tonsils suggest sequela of prior infection. There is also asym metric nodular thickening along the anterior surface of the left epiglottis measuring 6 mm, reference axial image 48. The glottic and subglottic structures as well as the tracheal column and visualized upper lungs are c lear. The thyroid, submandibular, and parotid glands appear satisfactory. Palpable marker is present just below level of the tail of the parotid gland. No underlying mass or l ymphadenopathy is identified. IMPRESSION: 1. PALPABLE MARKER ALONG THE LEFT UPPER NECK SITUATED JUST BELOW THE LEVEL OF THE LEFT PAROTID TAIL. NO UNDERLYING MASS OR SUSPICIOUS LYMPHADENOPATHY. THE PATIENT'S PALPABLE AREA CAN BE FOLLOWED CLINICA LLY. 2. RIGHTWARD DEVIATION OF THE UVULA VERSUS ABNORMAL SOFT TISSUE THICKENING ALONG THE RIGHT SIDE OF TH E SOFT PALATE. CORRELATE WITH DIRECT VISUALIZATION. 3. ADDITIONAL 6 MM NODULAR THICKENING ALONG THE ANTERIOR SURFACE OF THE LEFT PARASAGITTAL EPIGLOTTIS. AGAIN, CORRELATE WITH DIRECT VISUALIZATION TO EXCLUDE A MUCOSAL LESION. 4. AIR-FLUID LEVEL IN THE LEFT SPHENOID SINUS WHICH CAN BE SEEN WITH ACUTE SINUSITIS.
== END | disposition home or self-care (01) ==
LOC: RADCTMAIN 13:51
PROVIDERS: ATTEND Family Medicine
DX: R22.1 Localized swelling, mass and lump, neck (principal)
CPT/HCPCS: 70491; Q9967

== ENCOUNTER → 2018-09-24 | Outpatient (CLI) | payer OTHER ==
--- NOTE | 2018-09-28 09:48 | MM ---
Reason for exam: screening (asymptomatic). Last mammogram was performed 2 years and 1 month ago. History: Patient is postmenopausal, has history of other cancer at age 54, and is nulliparous. Physical Findings: A clinical breast exam by your physician is recommended on an annual basis and results should be correlated with mammographic findings. MG Screening Mammo w CAD Bilateral CC and MLO view(s) were taken. Prior study comparison: August 15, 2016, bilateral MG screening mammo w CAD. April 30, 2015, bilateral MG screening mammo w CAD. There are scattered fibroglandular densities. Benign appearing bilateral calcifications. There is chronic nodularity in the right breast. No significant changes when compared with prior studies. ASSESSMENT: Benign, BI-RAD 2 RECOMMENDATION: Routine screening mammogram of both breasts in 1 year.
== END | disposition home or self-care (01) ==
LOC: RADMAMWWP 07:29
PROVIDERS: ATTEND Family Medicine
DX: Z12.31 Encounter for screening mammogram for malignant neoplasm of breast (principal)
CPT/HCPCS: 77067

== ENCOUNTER → 2019-12-20 | Outpatient (CLI) | payer OTHER ==
--- NOTE | 2019-12-22 09:20 | MM ---
Reason for exam: screening (asymptomatic). Last mammogram was performed 1 year and 3 months ago. History: Patient is postmenopausal, has history of other cancer at age 54, and is nulliparous. Physical Findings: A clinical breast exam by your physician is recommended on an annual basis and results should be correlated with mammographic findings. MG 3D Screening Mammo W/Cad Bilateral CC and MLO view(s) were taken. Prior study comparison: September 24, 2018, bilateral MG screening mammo w CAD. August 15, 2016, bilateral MG screening mammo w CAD. There are scattered fibroglandular densities. No significant changes when compared with prior studies. ASSESSMENT: Benign, BI-RAD 2 RECOMMENDATION: Routine screening mammogram of both breasts in 1 year.
== END | disposition home or self-care (01) ==
LOC: RADMAMWWP 12:59
PROVIDERS: ATTEND Obstetrics & Gynecology
DX: Z12.31 Encounter for screening mammogram for malignant neoplasm of breast (principal)
CPT/HCPCS: 77063; 77067

== ENCOUNTER → 2020-03-27 | Outpatient (CLI) | payer OTHER ==
--- NOTE | 2020-03-27 17:16 | EEG ---
ELECTROENCEPHALOGRAM REPORT DATE OF SERVICE: 03/27/2020 CLINICAL HISTORY: This is an is a 59-year-old woman who is having visual disturbance, over both eyes and having balance issues. The video EEG was obtained to evaluate for seizure and epileptiform activity. RELEVANT MEDICATION: Unknown, if the patient is on antiepileptic drug. EEG TYPE: Routine 21 channel EEG was performed with video using the [id number] electrode placement system. DESCRIPTION: Wakefulness is only obtained. During wakefulness, there is a posterior dominant rhythm of low to moderate voltage, reactive, well modulated, of 9.5-10.5 hertz over bilateral hemisphere. There was no physiological stage 2 sleep. INTERICTAL AND ICTAL: None. ACTIVATION PROCEDURE: Photic stimulation did not evoke a positive driving response over bilateral hemisphere. Hyperventilation was not performed. CLINICAL INTERPRETATION: This is a normal routine EEG. There are no focal slowing, epileptiform discharges or seizure throughout the study. Clinical correlation is recommended. RENATA / MARLINN: [id number] / ANAND
== END | disposition home or self-care (01) ==
LOC: NEUROMAIN 08:41
PROVIDERS: ATTEND Family Medicine
DX: H53.9 Unspecified visual disturbance (principal)
CPT/HCPCS: 95816

== ENCOUNTER → 2020-03-31 | Outpatient (CLI) | payer OTHER ==
--- NOTE | 2020-04-01 01:01 | MR ---
EXAMINATION TYPE: MR brain wo/w con DATE OF EXAM: 03/31/2020 COMPARISON: None HISTORY: Visual disturbance CONTRAST: Standard multiplanar, multisequence MRI departmental protocol utilizing 7 mL intravenous Gadavist abril olinium contrast. There is mild cerebral cortical atrophy. There is no mass effect nor midline shift. There is no sign of intracranial hemorrhage. Diffusion images show no evidence of cortical infarct. Corpus callosum is intact. Sella turcica is normal. Brainstem is intact. There is mild mucosal thickening in the maxill james sinuses. There is no evidence of orbital mass. Optic chiasm appears normal. Pituitary stalk appears normal. Th e contrast images show no pathologic enhancement. There is normal enhancement of the venous sinuses. IMPRESSION: Negative MR scan of the brain. Mild atrophy appropriate for age. No evidence of an infarct. Mild maxillary sinusitis.
== END | disposition home or self-care (01) ==
LOC: RADMRIMAIN 10:58
PROVIDERS: ATTEND Family Medicine
DX: G31.1 Senile degeneration of brain, not elsewhere classified (principal)
CPT/HCPCS: 70553; A9585

== ENCOUNTER → 2020-05-17 | Outpatient (CLI) | payer OTHER ==
--- NOTE | 2020-05-17 15:25 | US ---
EXAMINATION TYPE: US thyroid st tissue head/neck DATE OF EXAM: 05/17/2020 COMPARISON: NONE CLINICAL HISTORY: E05.90 THYROTOXICOSIS. hyperthyroidism GLAND SIZE: Right Lobe: 5.0 x 1.8 x 1.9 cm Overall Parenchyma: heterogenous Left Lobe: 4.2 x 1.5 x 1.6 cm Overall Parenchyma: heterogeneous Isthmus Thickness: 0.3 cm NODULES RIGHT: # of nodules measured on right: 0 LEFT: # of nodules measured on left: 0 ISTHMUS: # of nodules measured in the isthmus: 0 Bilateral neck scanned, no evidence of lymphadenopathy. IMPRESSION: 1. Normal thyroid ultrasound
== END | disposition home or self-care (01) ==
LOC: RADUSWWP 14:47
PROVIDERS: ATTEND Family Medicine
DX: E05.90 Thyrotoxicosis, unspecified without thyrotoxic crisis or storm (principal)
CPT/HCPCS: 76536

== ENCOUNTER → 2020-05-30 | Outpatient (CLI) | payer OTHER ==
--- NOTE | 2020-05-30 13:56 | CT ---
EXAMINATION TYPE: CT chest w con DATE OF EXAM: 05/30/2020 COMPARISON: 12/13/2009 HISTORY: myasthenia gravis CT DLP: 301.2 mGycm Automated exposure control for dose reduction was used. CONTRAST: CT scan of the chest is performed with IV Contrast, patient injected with 100 mL of Isovue 300. FINDINGS: LUNGS: The lungs are grossly clear, there is no concerning parenchymal mass or nodule identified. T here is no pleural effusion or pneumothorax seen. The tracheobronchial tree is patent. MEDIASTINUM: There is mild increased density within the region of the anterior mediastinum which may reflect a degree of thymic hyperplasia. No distinct mass is appreciated. There are no greater than 1 cm hilar or mediastinal lymph nodes. No pericardial effusion is seen. Thoracic aorta is of normal caliber. The heart is not enlarged. UPPER ABDOMEN: There is evidence of hepatic steatosis. Small sliding-type hiatal hernia noted. The ga llbladder is contracted with small gallstones noted. OTHER: No additional significant abnormality is seen. IMPRESSION: There is mild increased density within the region of the anterior mediastinum which may reflect a deg ree of thymic hyperplasia. No distinct mass is appreciated.
== END | disposition home or self-care (01) ==
LOC: RADCTMAIN 13:17
PROVIDERS: ATTEND Psychiatry & Neurology Neurology
DX: G70.00 Myasthenia gravis without (acute) exacerbation (principal)
CPT/HCPCS: 71260; Q9967

== ENCOUNTER → 2020-12-27 | Outpatient (CLI) | payer OTHER ==
--- NOTE | 2020-12-28 12:57 | MM ---
Reason for exam: screening (asymptomatic). Last mammogram was performed 1 year ago. History: Patient is postmenopausal, has history of other cancer at age 54, and is nulliparous. Physical Findings: A clinical breast exam by your physician is recommended on an annual basis and results should be correlated with mammographic findings. MG 3D Screening Mammo W/Cad Bilateral CC and MLO view(s) were taken. Prior study comparison: December 20, 2019, bilateral MG 3d screening mammo w/cad. September 24, 2018, bilateral MG screening mammo w CAD. There are scattered fibroglandular densities. There is chronic nodularity in the right breast. Scar marker on right breast. No significant changes when compared with prior studies. ASSESSMENT: Benign, BI-RAD 2 RECOMMENDATION: Routine screening mammogram of both breasts in 1 year.
== END | disposition home or self-care (01) ==
LOC: RADMAMWWP 15:57
PROVIDERS: ATTEND Obstetrics & Gynecology
DX: Z12.31 Encounter for screening mammogram for malignant neoplasm of breast (principal)
CPT/HCPCS: 77063; 77067

== ENCOUNTER → 2023-01-08 | Outpatient (CLI) | payer OTHER ==
--- NOTE | 2023-01-08 22:21 | BD ---
EXAMINATION TYPE: Axial Bone Density DATE OF EXAM: 01/08/2023 CLINICAL HISTORY: 62 years old Female. ICD-10 CODE: Z78.0 asymptomatic menopausal state Height: 59in Weight: 149lb FRAX RISK QUESTIONS: Glucocorticoids (More than 3mos): yes (Ex: prednisone, prednisolone, methylprednisolone, dexamethasone, and hydrocortisone). Secondary Osteoporosis: RISK FACTORS HISTORY OF: Active: yes Diet low in dairy products/other sources of calcium: yes Postmenopausal woman: yes MEDICATIONS: Prednisone or other steroids: yes How Long: about 10 years Additional Medications: bp meds, cholesterol meds, vitamin d Additional History: autoimmune disease, asthma EXAM MEASUREMENTS: Bone mineral densitometry was performed using the [employer] System. Bone mineral density as measured about the Lumbar spine is: ----- L1-L4(G/cm2): 1.126 T Score Values are as follows: ----- L1: -1.0 ----- L2: -1.0 ----- L3: 0.2 ----- L4: -0.2 ----- L1-L4: -0.4 Z Score Values are as follows: ----- L1: 0.4 ----- L2: 0.4 ----- L3: 1.6 ----- L4: 1.1 ----- L1-L4: 0.[address] [facility] Bone mineral density about the R hip (g/cm2): 0.935 Bone mineral density about the L hip (g/cm2): 1.006 T Score values are as follows: -----R Neck: -1.3 -----L Neck: -0.9 -----R Total: -0.6 -----L Total: 0.0 Z Score values are as follows: -----R Neck: 0.0 -----L Neck: 0.4 -----R Total: 0.5 -----L Total: 1.0 FRAX%s: The graph provided illustrates a 12.7% chance for a major osteoporotic fx and a 1.2% chance f or the hips probability for fx in 10 years time. IMPRESSION: Osteopenia (T Score between -2.5 and -1). There is slightly increased risk of fracture and the patient may be considered for treatment. Re-Screen 2-5 years. NOTE: T-SCORE=SD OF THE YOUNG ADULT MEAN.
== END | disposition home or self-care (01) ==
LOC: RADBDWWP 09:05
PROVIDERS: ATTEND Family Medicine
DX: M85.88 Other specified disorders of bone density and structure, other site (principal); Z78.0 Asymptomatic menopausal state
CPT/HCPCS: 77080

== ENCOUNTER → 2023-02-06 | Outpatient (CLI) | payer OTHER ==
[2023-02-06 19:47] LABS: Clam IgE <0.10 kU/L; Codfish IgE <0.10 kU/L; Egg White IgE <0.10 kU/L; Peanut IgE <0.10 kU/L; Scallop IgE <0.10 kU/L; Shrimp IgE <0.10 kU/L; Soybean IgE <0.10 kU/L; Walnut IgE (Food) <0.10 kU/L
== END | disposition home or self-care (01) ==
LOC: LABWHC1 10:00
PROVIDERS: ATTEND Internal Medicine Critical Care Medicine
DX: J45.909 Unspecified asthma, uncomplicated (principal)
CPT/HCPCS: 36415; 82785; 85008; 86003

== ENCOUNTER → 2023-09-10 | Outpatient (CLI) | payer BC ==
--- NOTE | 2023-09-10 18:12 | CT ---
EXAMINATION TYPE: High resolution CT chest DATE OF EXAM: 09/10/2023 COMPARISON: 05/30/2020 HISTORY: 63-year-old female M35.00, unspecified Sjogren syndrome, Difficulty breathing. TECHNIQUE: High-resolution CT of the chest utilizing 1 mm slice thickness and one similar gap or HRCT protocol. No IV contrast is administered. Both prone and supine imaging is performed. CT DLP: 1063.9mGycm. Automatic exposure control utilized for a dose reduction. FINDINGS: Heart normal size without pericardial effusion. Aorta normal caliber with mild atherosclerotic arch calcifications and bovine configuration to the ao rtic arch. No thoracic lymphadenopathy by CT size criteria. Small amount of adherent mucoid secretions along the left lateral wall of the trachea. Moderate diffuse bronchial wall thickening. Strandy scarring or atelectasis inferior lingula and basi lar right middle lobe. Minimal endobronchial opacification at the basilar lower lobes. Some mild air trapping is present with mosaic attenuation in the lower lungs. 5 mm medial right middle lobe subpleural pulmonary nodule, axial image 158 series 8. 3 mm pulmonary nodule right middle lobe, axial image 151. Possible pulmonary nodule along the bronchovascular bundles of the right middle lobe measuring 1.3 cm , axial image 165. Calcified granuloma subpleural inferior lingula. 4 mm subpleural pulmonary nodule left lower lobe, axial image 205 is unchanged. There is no honeycombing. No centrilobular nodularity. No dominant tree-in-bud opacities or groundgla ss change. Visualized upper abdomen shows a small hiatal hernia and fatty infiltration of the liver along with s mall layering calculi in the gallbladder. No osseous destructive process. IMPRESSION: 1. Moderate bronchial wall thickening may be seen with bronchitis or uncontrolled asthma. Clinically correlate. Changes have progressed from 05/30/2020. Some mosaic attenuation suggests air trapping/small airways disease. 2. Interval development of some scarring in the anterior lower lungs. 3. A few pulmonary nodules. Possible 1.3 cm nodule right middle lobe along the bronchovascular bundle . Recommend 3 - 6 month follow-up CT chest with contrast to reassess these nodules. 4. Small hiatal hernia and hepatic steatosis. Cholelithiasis.
== END | disposition home or self-care (01) ==
LOC: RADCTMAIN 09:14
PROVIDERS: ATTEND Internal Medicine Critical Care Medicine
DX: K44.9 Diaphragmatic hernia without obstruction or gangrene (principal); M35.00 Sjogren syndrome, unspecified; K80.20 Calculus of gallbladder without cholecystitis without obstruction; J98.09 Other diseases of bronchus, not elsewhere classified; K76.0 Fatty (change of) liver, not elsewhere classified; J98.4 Other disorders of lung; R91.8 Other nonspecific abnormal finding of lung field
CPT/HCPCS: 71250

== ENCOUNTER → 2024-08-25 | Outpatient (CLI) | payer MEDICARE, OTHER ==
--- NOTE | 2024-08-25 13:57 | CT ---
EXAMINATION TYPE: CT chest wo con DATE OF EXAM: 08/25/2024 COMPARISON: 09/10/2023 CLINICAL INDICATION: Female, 64 years old with history of J45.50 SEVERE PERSISTENT ASTHMA, UNCOMPLICA DARCIE; PHH, ASTHMA. F/U CT FROM LAST YEAR. TECHNIQUE: CT scan of the thorax is performed without IV contrast. CT DLP: 279.[address] CTDI: mGy Automated exposure control for dose reduction was used. FINDINGS: There is a stable 5 mm nodule in the left lower lobe. There is a calcified granuloma in the lingula. There are a few scattered micronodules in the right lung. There is no new or suspicious lung mass or nodule. There is no airspace consolidation or abnormal interstitial density. The peribronchial cuffing seen o n the prior study has resolved in the interval. The questionable mass in the right middle lobe likely inflammatory in nature. There is no pleural effusion or pneumothorax. The great vessels the chest are normal. There is no cardiomegaly. There is no mediastinal, hilar or axillary adenopathy. Limited scanning through the upper abdomen reveals stable cholelithiasis.. There are no focal osseous lesions.. IMPRESSION: 1. No acute cardiopulmonary disease. Resolution of the previously described inflammatory changes. 2. Stable 5 mm nodule left lower lobe. 3. Stable cholelithiasis. [facility], , 08/25/2024 1:55 PM
== END | disposition home or self-care (01) ==
LOC: RADCTMAIN 11:48
PROVIDERS: ATTEND Internal Medicine Critical Care Medicine
DX: J45.50 Severe persistent asthma, uncomplicated (principal); R91.1 Solitary pulmonary nodule; K80.20 Calculus of gallbladder without cholecystitis without obstruction
CPT/HCPCS: 71250